=== PATIENT | female | born 1965 | race Caucasian/White ===

== ENCOUNTER → 2018-08-17 17:11 | Outpatient (CLI) | payer BC, SELFPAY ==
--- NOTE | 2018-08-17 17:15 | DI.MRI.S_ITS ---
PROCEDURE: MR HIP RT WO CON INDICATIONS: PAIN IN RIGHT HIP TECHNIQUE: Noncontrast coronal T1 spin echo and STIR through the bony pelvis. Coronal and axial T2 fast spin echo with fat saturation, sagittal T1 spin echo, and oblique axial T2 fast spin echo with fat saturation through the hip. COMPARISON: None. FINDINGS: Image quality: Excellent. Bones and joints: No fracture or focal osseous destruction identified. There is mild bilateral hip degeneration with subchondral spurring and sclerosis. Mild lower lumbar spondylosis. No evidence of avascular necrosis. Mild right joint effusion. Tendons and ligaments: The gluteus medius and minimus tendons appear intact, although there is mild insertional gluteus minimus tendinopathy. The nearby proximal iliotibial band also appears intact. The iliopsoas tendon appears intact, without adjacent bursal fluid collections or evidence for impingement syndrome. The origin of the hamstring tendon is mildly thickened at the ischial tuberosity The straight and reflected heads of the rectus femoris muscle origin appear intact, as well as the conjoint tendon. The ligamentum teres appears intact where visualized. Labrum and cartilage: Anterosuperior labral tear is seen, with full thickness appearance and poorly defined maceration. There is adjacent subchondral degenerative change in the acetabulum. There is also adjacent partial thickness chondral loss The alpha angle of the femur is within normal limits at less than 55 degrees. Soft tissues: Visualized muscles demonstrate normal bulk and internal signal. Quadratus femoris muscle demonstrates no internal edema to suggest ischiofemoral impingement. The proximal sciatic neurovascular bundle appears normal adjacent to the hamstring tendons. No free pelvic fluid. Bladder wall thickness is normal. Genitourinary structures and bowel loops appear normal where visualized. 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 Low-grade hamstring origin tendinopathy. Mild gluteus medius insertional tendinopathy Mild right hip joint effusion. Bilateral hip degeneration. Dictated by: Singh Bernal M.D. on 08/20/2018 at 9:40 Approved by: Singh Bernal M.D. on 08/20/2018 at 9:48
== END ==
PROVIDERS: Visit Provider Family Medicine
DX: M25.551 Pain in right hip (principal); S73.191A Other sprain of right hip, initial encounter; M16.0 Bilateral primary osteoarthritis of hip; M47.816 Spondylosis without myelopathy or radiculopathy, lumbar region; M25.451 Effusion, right hip; M67.951 Unspecified disorder of synovium and tendon, right thigh
CPT/HCPCS: 73721